=== PATIENT | male | born 1990 | race Two or more races ===

== ENCOUNTER 2019-05-29 06:50 | Emergency (ER) | payer MEDICAID, OTHER ==
[~2019-05-29] VITALS: Ht 182.9 cm; Wt 154.2 kg
[~2019-05-29 06:50] MED LIST: METF500T OR
[2019-05-29 08:08] LABS: Eosinophils # (auto) 0.1 uL; Monocytes # (auto) 0.6 uL; Red Cell Distribution Width 13.8 % (11.8-14.3)
[2019-05-29 08:10] LABS: Basophils # (auto) 0.1 uL; Basophils % (auto) 0.5 % (0.0-2.0); Hematocrit 51.8 % (41.0-53.0); Hemoglobin 17.9 g/dL (13.5-17.5); Lymphocytes # (auto) 2.3 uL; Lymphocytes % (auto) 23.5 % (10.0-50.0); Mean Corpuscular Hemoglobin 30.3 pg (28.0-32.0); Mean Corpuscular Hgb Conc. 34.5 g/dL (32.0-36.0); Mean Corpuscular Volume 87.8 fL (80.0-100.0); Monocytes % (auto) 5.8 % (0.0-12.0); Neutrophils # (auto) 6.9 uL; Neutrophils % (auto) 69.2 % (37.0-80.0); Nucleated Red Blood Cells % 0.1 %; Platelet Count (auto) 255 10^3/uL (140-450)
[2019-05-29 08:24] LABS: INR < 0.93 (0.9-1.15); Partial Thromboplastin Time 27.1 sec (23.64-32.05)
[2019-05-29 08:27] LABS: Albumin 3.6 g/dL (3.4-5.0); Anion Gap 7 (5-15); Blood Urea Nitrogen 11 mg/dL (7-18); Calcium 8.8 mg/dL (8.5-10.1); Carbon Dioxide 26 mmol/L (21-32); Chloride 107 mmol/L (98-107); Glucose 113 mg/dL (74-106); Potassium 3.6 mmol/L (3.5-5.1); Sodium 140 mmol/L (136-145)
[2019-05-29 08:33] LABS: Alanine Aminotransferase 105 U/L (16-61); Alkaline Phosphatase 98 U/L (45-117); Aspartate Aminotransferase 47 U/L (15-37); BUN/Creatinine Ratio 12.8; Bilirubin, Total 0.4 mg/dL (0.2-1.0); GFR African American 138 mL/min; GFR Non-African American 114 mL/min; Total Protein 8.5 g/dL (6.4-8.2)
[2019-05-29] MEDS ORDERED: IBUPROFEN 800 MG TAB PO ONE (08:45)
[2019-05-29] MEDS ORDERED: ASPirin 81 mg TAB PO ONE (08:45)
[2019-05-29] MEDS ORDERED: SODIUM CHLORIDE 0.9% 1,000 ML IV ONE (09:13)
[2019-05-29 14:15] VITALS: BP 146/116
[2019-05-29 14:41] LABS: Alcohol, Urine < 3.0 mg/dL (0-5); Amphetamine Screen, Urine NEGATIVE (NEGATIVE); Barbiturate Scree,Urine NEGATIVE (NEGATIVE); Benzodiazephine Screen, Urine NEGATIVE (NEGATIVE); Cannabinoid Screen, Urine NEGATIVE (NEGATIVE); Cocaine Screen, Urine NEGATIVE (NEGATIVE); Opiate Scree,Urine NEGATIVE (NEGATIVE); Phencyclidine Screen, Urine NEGATIVE (NEGATIVE)
== END 2019-05-29 14:38 | disposition short-term general hospital (02) ==
LOC: ER 06:50
DX: R07.89 Other chest pain (principal); E86.0 Dehydration; K21.9 Gastro-esophageal reflux disease without esophagitis
CPT/HCPCS: 36415; 71045; 80053; 80307; 83880; 84484; 85025; 85610; 85730; 93005; 99285; J7030

== ENCOUNTER 2025-09-06 19:01 | Emergency (ER) | payer OTHER, SELFPAY ==
[~2025-09-06] VITALS: Ht 185.4 cm; Wt 156.2 kg
--- NOTE | 2025-09-06 20:33 | DVH ---
CHEST RADIOGRAPH REASON FOR EXAM: CHEST PAIN, SHORTNESS OF BREATH COMPARISON: None TECHNIQUE: One view of the chest is provided FINDINGS: The cardiomediastinal silhouette is within normal limits for technique. There are low inspi ratory volumes causing crowding and exaggeration of the pulmonary markings. There is no focal airspac e disease. There is no significant pleural effusion. No acute bony abnormality is identified. IMPRESSION: Low inspiratory volumes. No radiographic evidence of acute cardiopulmonary process.
--- NOTE | 2025-09-06 20:50 | DVH ---
CLINICAL HISTORY: GENERALIZED ABDOMINAL PAIN TECHNIQUE: CT of the abdomen and pelvis was performed without IV contrast. This exam was performed ac cording to our departmental dose optimization program. Up-to-date CT equipment and radiation dose red uction techniques are utilized as appropriate. CTDI 26 DLP 1519 COMPARISON: None FINDINGS: Abdomen/Pelvis: The spleen, pancreas, adrenal glands, kidneys, and prostate gland are unremarkable. The gallbladder i s absent. There is diffuse hepatic steatosis. The bladder is not well distended therefore not well evaluated. The abdominal aorta is normal in course and caliber. There are no significant atherosclerotic calcifi cations. There is no free intraperitoneal air or fluid. There is no enlarged abdominal pelvic lymph node. There is no bowel wall thickening or dilatation. The appendix is normal. Other: The imaged lower thorax is unremarkable. No acute osseous abnormality is evident. Impression: No acute noncontrast CT abnormality in the abdomen or pelvis. Diffuse hepatic steatosis. Cholecystectomy.
[2025-09-06 20:59] LABS: Chloride 101 mmol/L (98-107); Potassium 3.9 mmol/L (3.5-5.1); Sodium 140 mmol/L (136-145)
[2025-09-06 21:00] LABS: Anion Gap 12 (5-15); Calcium 10.3 mg/dL (8.7-10.4); Carbon Dioxide 27 mmol/L (20-31); Hematocrit 55.7 % (41.0-53.0); Hemoglobin 19.1 g/dL (13.5-17.5); Mean Corpuscular Hemoglobin 30.0 pg (28.0-32.0); Mean Corpuscular Volume 87.2 fL (80.0-100.0); Nucleated Red Blood Cells % 0.0 %
[2025-09-06 21:05] LABS: BUN/Creatinine Ratio 5.6 (10.0-20.0); Blood Urea Nitrogen 11 mg/dL (9-23); Glucose 105 mg/dL (74-106); Lipase 34 U/L (12-53)
[2025-09-06] MEDS: KETOROLAC TROMETH 30 MG/ML 1ML VIAL IM ONE (21:08)
[2025-09-06] MEDS: LIDOCAINE VISCOUS 2% 15ML UD PO ONE (21:08)
[2025-09-06] MEDS: MAALOX PLUS or MAALOX 30 ML PO ONE (21:09)
[2025-09-06] MEDS: ONDANSETRON ODT 4 MG TAB PO ONE (21:12)
[2025-09-06] MEDS ORDERED: ZOFR4T PO (22:20)
[2025-09-06 23:52] VITALS: BP 137/69; TEMP 98
[2025-09-07 00:14] VITALS: PULSE 80; RESP 18; O2SAT 100
--- NOTE | 2025-09-07 11:25 | ED.PDOC ---
History of Present Illness HPI Comments 35-year-old male who came to ER for abdominal pain. Patient was apparently well until about 3 hours ago patient started feeling nauseated, followed by left upper quadrant abdominal pain, constant, cramping, radiating to his mid sternal chest area. Associated with dizziness, shortness of breath, and lightheaded ness REVIEW OF SYSTEMS: General: No fever, no chills, or fatigue HEENT: No sore throat, no earache, no congestion, no neck pain. Cardiac: (+) chest pain. No palpitations. Lungs: No shortness of breath, no cough. GI: (+) nausea, no vomiting, no diarrhea, no constipation, (+) abdominal pain : No dysuria, frequency, or urgency. No hematuria. Musculoskeletal: No joint pain , no joint swelling, no extremity edema. Skin: No rash, no itching. Neuro: No headache, no dizziness, no weakness EXAM: General: Awake, alert and oriented. No acute distress. Skin: Skin in warm, dry and intact. Appropriate color for ethnicity. HEENT: The head is normocephalic and atraumatic. Conjunctivae are clear without exudates or hemorrhage. Sclera is non-icteric. EOM are intact. No signs of nystagmus. Eyelids are normal in appearance without swelling or lesions. Oral mucosa is pink and moist Neck: The neck is supple with normal range of motion. No JVD. Cardiac: Heart rate and rhythm are normal. No murmurs, gallops, or rubs are auscultated. Respiratory: No signs of respiratory distress. Lung sounds are clear in all lobes bilaterally without rales, rhonchi, or wheezes. Abdominal: Abdomen is soft, non-tender without distention. Bowel sounds are pre sent and normoactive in all four quadrants. Extremities: Upper and lower extremities are atraumatic in appearance without deformity or edema. Neurological: The patient is awake, alert and oriented to person, place, and time with normal speech. Speech is clear. There is no facial asymmetry. Psychiatric: Appropriate mood and affect. Good judgement and insight Chief Complaint: Abdominal Pain Time Seen by MD: 20:00 Primary Care Provider: ORALIA Reviewed Notes: Nurses Notes Allergies: Coded Allergies: NO KNOWN ALLERGIES (Unverified , 05/06/10) Home Meds Reported Medications Metformin Hydrochloride (Glucophage) 500 Mg Tab, 500 MG OR 6/29/10 Information Source: Patient Mode of Arrival: Ambulatory Past Medical History PAST MEDICAL HISTORY: GERD, HTN Surgical History: Cholecystectomy Family History Family History: Reviewed,noncontributory to illness Social History Smoker: Non-Smoker Alcohol: Denies ETOH Use Drugs: Denies Drug Use Lives In: Home Was a procedure done? Was a procedure done?: No Differential Dx Considerations may include: Gastritis, gastroenteritis, urinary tract infection, kidney stones, GERD X-Ray, Labs, Meds, VS Vital Signs Date Time Temp Pulse Resp B/P (MAP) Pulse Ox O2 Delivery O2 Flow Rate FiO2 09/06/25 19:02 98.9 114 16 121/86 98 98.9 Lab Test 09/06/25 21:30 09/06/25 20:20 Range/Units Troponin I High Sensitivity 18 14 </=54 ng/L White Blood Count 13.9 H 4.4-10.8 10^3/uL Red Blood Count 6.38 H 4.5-5.90 10^6/uL Hemoglobin 19.1 H 13.5-17.5 g/dL Hematocrit 55.7 H 41.0-53.0 % Mean Corpuscular Volume 87.2 80.0-100.0 fL Mean Corpuscular Hemoglobin 30.0 28.0-32.0 pg Mean Corpuscular Hemoglobin Concent 34.4 32.0-36.0 g/dL Red Cell Distribution Width 14.5 H 11.8-14.3 % Platelet Count 293 140-450 10^3/uL Mean Platelet Volume 10.1 6.9-10.8 fL Neutrophils (%) (Auto) 72.5 37.0-80.0 % Lymphocytes (%) (Auto) 19.8 10.0-50.0 % Monocytes (%) (Auto) 7.3 0.0-12.0 % Eosinophils (%) (Auto) 0.2 0.0-7.0 % Basophils (%) (Auto) 0.2 0.0-2.0 % Neutrophils # (Auto) 10.1 H 1.6-8.6 10 ^3/uL Lymphocytes # (Auto) 2.8 0.4-5.4 10 ^3/uL Monocytes # (Auto) 1.0 0-1.3 10 ^3/uL Eosinophils # (Auto) 0 0-0.8 10 ^3/uL Basophils # (Auto) 0 0-0.2 10 ^3/uL Nucleated Red Blood Cells 0.0 % Sodium Level 140 136-145 mmol/L Potassium Level 3.9 3.5-5.1 mmol/L Chloride Level 101 98-107 mmol/L Carbon Dioxide Level 27 20-31 mmol/L Anion Gap 12 5-15 Blood Urea Nitrogen 11 9-23 mg/dL Creatinine 1.97 H 0.700-1.30 mg/dL Glomerular Filtration Rate Calc 45 >90 mL/min BUN/Creatinine Ratio 5.6 L 10.0-20.0 Serum Glucose 105 74-106 mg/dL Calcium Level 10.3 8.7-10.4 mg/dL Lipase 34 12-53 U/L Current Medications Medications (Trade) Dose Ordered Sig/Riya Route Start Time Stop Time Status Last Admin Ketorolac Tromethamine (Toradol Injection) 30 mg ONCE ONCE IM 09/06/25 20:15 09/06/25 20:16 DC 09/06/25 21:08 Ondansetron HCl (Zofran Po) 4 mg ONCE ONCE PO 09/06/25 20:15 09/06/25 20:16 DC 09/06/25 21:12 Al Hydrox/Mg Hydrox/Simethicone (Maalox Plus) 30 ml ONCE ONCE PO 09/06/25 20:15 09/06/25 20:16 DC 09/06/25 21:09 Lidocaine HCl (Xylocaine 2% Viscous) 10 ml ONCE ONCE PO 09/06/25 20:15 09/06/25 20:16 DC 09/06/25 21:08 PROCEDURE(s): ABPL - CT AB PEL WO CON-NO ORAL OR IV REASON: GENERALIZED ABDOMINAL PAIN ORDER NUMBER(s): [id number], ACCESSION NUMBER(s): [id number] CLINICAL HISTORY: GENERALIZED ABDOMINAL PAIN TECHNIQUE: CT of the abdomen and pelvis was performed without IV contrast. This exam was performed according to our departmental dose optimization program. Up-to-date CT equipment and radiation dose reduction techniques are utilized as appropriate. CTDI 26 DLP 1519 COMPARISON: None FINDINGS: Abdomen/Pelvis: The spleen, pancreas, adrenal glands, kidneys, and prostate gland are unremarkable. The gallbladder is absent. There is diffuse hepatic steatosis. The bladder is not well distended therefore not well evaluated. The abdominal aorta is normal in course and caliber. There are no significant atherosclerotic calcifications. There is no free intraperitoneal air or fluid. There is no enlarged abdominal pelvic lymph node. There is no bowel wall thickening or dilatation. The appendix is normal. Other: The imaged lower thorax is unremarkable. No acute osseous abnormality is evident. Impression: No acute noncontrast CT abnormality in the abdomen or pelvis. Diffuse hepatic steatosis. Cholecystectomy. T RADIOGRAPH REASON FOR EXAM: CHEST PAIN, SHORTNESS OF BREATH COMPARISON: None TECHNIQUE: One view of the chest is provided FINDINGS: The cardiomediastinal silhouette is within normal limits for technique. There are low inspiratory volumes causing crowding and exaggeration of the pulmonary markings. There is no focal airspace disease. There is no significant pleural effusion. No acute bony abnormality is identified. IMPRESSION: Low inspiratory volumes. No radiographic evidence of acute cardiopulmonary process. Time of 1ST Reevaluation: 19:56 Reevaluation 1ST: Unchanged Patient Education/Counseling: Need For Follow Up Family Education/Counseling: No Family Present SEPSIS Sepsis Screen Date sepsis recognized/suspect: Sep 06, 2025 Time Sepsis recognized/suspect: 1903 Recent Procedure: No On Antibiotic Therapy: No Respiratory Rate >20: No Heart Rate >90: No Temp<36 C (96.8 F) or >38.3 C: No SBP <90 or MAP <65 mmHG: No New Acute Mental Status Change: No Is the patient on CPAP, BIPAP,: No Physician Orders Electrocardigram (09/06/25 20:03) Chest Xray 1 View (09/06/25 20:03) Ct Ab Pel Wo Con-No Oral Or Iv (09/06/25 20:03) Troponin-I Hs (09/06/25 23:03) Electrocardigram (09/06/25 21:03) Electrocardigram (09/06/25 23:03) Vital Signs Date Time Temp Pulse Resp B/P (MAP) Pulse Ox O2 Delivery O2 Flow Rate FiO2 09/06/25 19:02 98.9 114 16 121/86 98 98.9 Laboratory Tests Test 09/06/25 20:20 White Blood Count 13.9 10^3/uL (4.4-10.8) H Medications Medications Dose Ordered Sig/Riya Route Start Time Stop Time Status Last Admin Dose Admin Al Hydrox/Mg Hydrox/Simethicone 30 ml ONCE ONCE PO 09/06/25 20:15 09/06/25 20:16 DC 09/06/25 21:09 Ketorolac Tromethamine 30 mg ONCE ONCE IM 09/06/25 20:15 09/06/25 20:16 DC 09/06/25 21:08 Lidocaine HCl 10 ml ONCE ONCE PO 09/06/25 20:15 09/06/25 20:16 DC 09/06/25 21:08 Ondansetron HCl 4 mg ONCE ONCE PO 09/06/25 20:15 09/06/25 20:16 DC 09/06/25 21:12 Departure 1 Departure Time of Disposition: 22:19 Impression: Primary Impression: Abdominal pain Disposition: HOME / SELF CARE / HOMELESS Condition: Stable Additional Instructions: ED DISCHARGE INSTRUCTIONS Instructions: Please read all instructions provided in this packet carefully. Although you have been discharged from the Emergency Department, this does not mean that you have a "clean bill of health". No definitive diagnosis for your symptoms has been made today. It is possible that you are in the process of developing a serious illness. This is why you must return to the ED without fail if any new or worsening symptoms (especially if your symptoms include chest pain, trouble breathing, abdominal pain, fever, headache, confusion, trouble seeing, or trouble walking) You had an elevated white blood cell count today. It is very important that you see a primary care provider (PCP) within the next 3-5 days to follow up. If you are unable to get an appointment, return to the ED for re-evaluation. Abdominal Pain: Care Instructions Overview Abdominal pain has many possible causes. Some aren't serious and get better on their own in a few days. Others need more testing and treatment. If your pain continues or gets worse, you need to be rechecked and may need more tests to find out what is wrong. You may need surgery to correct the problem. Don't ignore new symptoms, such as fever, nausea and vomiting, urination problems, pain that gets worse, and dizziness. These may be signs of a more serious problem. If you are not getting better, you may need more tests or treatment. The doctor has checked you carefully, but problems can develop later. If you notice any problems or new symptoms, get medical treatment right away. Follow-up care is a leon part of your treatment and safety. Be sure to make and go to all appointments, and call your doctor if you are having problems. It's also a good idea to know your test results and keep a list of the medicines you take. How can you care for yourself at home? Rest until you feel better. To prevent dehydration, drink plenty of fluids. Choose water and other clear liquids until you feel better. If you have kidney, heart, or liver disease and have to limit fluids, talk with your doctor before you increase the amount of fluids you drink. When you feel like eating, start with small amounts. Do not have alcohol, caff eine, or spicy, hot, or high-fat foods for a day or two. Avoid anti-inflammatory medicines such as aspirin, ibuprofen (Advil, Motrin), and naproxen (Aleve). These can cause stomach upset. Talk to your doctor if you take daily aspirin for another health problem. When should you call for help? Call 911 anytime you think you may need emergency care. For example, call if: You passed out (lost consciousness). You pass maroon or very bloody stools. You vomit blood or what looks like coffee grounds. You have severe belly pain. Call your doctor now or seek immediate medical care if: Your pain gets worse, especially if it becomes focused in one area of your belly. You have a new or higher fever. Your stools are black and look like tar, or they have streaks of blood. You have unexpected vaginal bleeding. You have symptoms of a urinary tract infection. These may include: Pain when you urinate. Urinating more often than usual. Blood in your urine. You are dizzy or lightheaded, or you feel like you may faint. Watch closely for changes in your health, and be sure to contact your doctor if: You are not getting better as expected. Credits for Abdominal Pain: Care Instructions Current as of: August 26, 2023 Author: [employer] Staff Clinical Review Board All [employer] education is reviewed by a team that includes physicians, nurses, advanced practitioners, registered dieticians, and other healthcare professionals. Learning About High White Blood Cell Counts What are white blood cells? White blood cells (leukocytes) help protect your body from infection. Normally, when germs get inside your body, your body makes more white blood cells that search for and destroy the germs. Less often, there are medical problems where the body may make a lot more white blood cells than it needs. What happens when you have a high white blood cell count? Your white blood cell count may be high because your body is fighting an infection. But other things can cause it, such as some medicines, haile, an illness, or other health problems. When your doctor sees that your white blood cell count is high, he or she will try to find out why, and then treat the cause. What are the symptoms? A high white blood cell count alone doesn't cause any symptoms. The symptoms you feel may come from the medical problem that your white blood cells are fighting. For example, if you have pneumonia, you may have a fever and trouble breathing. These are symptoms of pneumonia, not of a high white blood cell count. How is it treated? Your doctor may do more tests to find the problem that's making your white blood cell count high. Once your doctor finds the problem, he or she may be able to treat it. Part of your treatment may be telling your doctor if you feel worse. Watch your temperature, and call your doctor if your fever goes up and stays up. Follow-up care is a leon part of your treatment and safety. Be sure to make and go to all appointments, and call your doctor if you are having problems. It's also a good idea to know your test results and keep a list of the medicines you take. Credits for Learning About High White Blood Cell Counts Current as of: October 20, 2023 e-Prescriptions Ondansetron Odt 4MG Tab (ZOFRAN PO) 4 Mg Tb 4 MG PO TIDPRN PRN for 3 Days, #9 TAB ODT TAB-DISSOLVE IN MOUTH, THEN SWALLOW Prov: VANI MOISE MD 09/06/25 Critical Care Note Critical Care Time?: No Stability Stability form required: No Heart Score Heart Score: Heart Score Response (Comments) Value History N/A 0 EKG N/A 0 Age N/A 0 Risk Factors N/A 0 Troponin N/A 0 Total 0 I personally scribed for VANI MOISE MD ([email or web address]) on 09/06/25 at 20:01. Electronically submitted by Ramsey Smith ([email or web address]). I personally scribed for VNAI MOISE MD ([email or web address]) on 09/06/25 at 22:01. Electronically submitted by Ramsey Smith ([email or web address]). VANI MOISE MD Sep 06, 2025 20:01
== END 2025-09-07 00:40 | disposition home or self-care (01) ==
LOC: ER 19:01
DX: R10.12 Left upper quadrant pain (principal); R42 Dizziness and giddiness; I10 Essential (primary) hypertension; Z90.49 Acquired absence of other specified parts of digestive tract; Z79.899 Other long term (current) drug therapy
CPT/HCPCS: 36415; 71045; 74176; 80048; 83690; 84484; 85025; 96372; 99285; J1885; Q0162